=== PATIENT | female | born 1985 | race Caucasian/White ===

== ENCOUNTER 2018-09-18 15:50 | Emergency (ER) | payer BC ==
[~2018-09-18] VITALS: Ht 157.5 cm; Wt 52.0 kg
[2018-09-18 15:53] VITALS: BP 148/76; PULSE 77; RESP 16; Ht 157.5 cm; Wt 52.0 kg
[2018-09-18] MEDS ORDERED: CYCL10TA7 PO (17:41)
[2018-09-18] MEDS ORDERED: MED4DP PO (17:41)
[2018-09-18] MEDS ORDERED: ACET325T33 PO (17:41)
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
== END 2018-09-18 18:45 | disposition home or self-care (01) ==
LOC: FTE 15:50
DX: M54.5 Low back pain (principal)
CPT/HCPCS: 72100; 81025